=== PATIENT | female | born 1990 | race Caucasian/White ===

== ENCOUNTER 2017-02-27 20:43 | Emergency (ER) | payer BC, OTHER ==
[~2017-02-27] VITALS: Ht 162.6 cm; Wt 139.6 kg
[2017-02-27 21:33] LABS: BASOPHILS # (AUTO) 0.09 x10^3/uL (0-0.1); BASOPHILS % (AUTO) 1 % (0-1); EOSINOPHILS # (AUTO) 0.56 x10^3/uL (0-0.4); EOSINOPHILS % (AUTO) 4 % (1-7); LYMPHOCYTES # (AUTO) 3.41 x10^3/uL (1-3.4); LYMPHOCYTES % (AUTO) 26 % (22-44); MD NO; MEAN CORPUSCULAR HEMOGLOBIN 28.1 pg (27.0-34.8); MEAN CORPUSCULAR HGB CONC 33.7 g/dL (32.4-35.8); MEAN CORPUSCULAR VOLUME 83.4 fL (80-100); MEAN PLATELET VOLUME 7.6 fL (7.4-10.4); MONOCYTES # (AUTO) 0.45 x10^3/uL (0.2-0.8); MONOCYTES % (AUTO) 3 % (2-9); NEUTROPHILS # (AUTO) 8.77 x10^3/uL (1.8-6.8); NEUTROPHILS % (AUTO) 66 % (42-75); PLATELET COUNT 337 x10^3/uL (130-400); RED BLOOD COUNT 5.04 x10^6/uL (3.82-5.3); RED CELL DISTRIBUTION WIDTH 12.9 % (9.6-15.2)
[2017-02-27 21:44] LABS: ALANINE AMINOTRANSFERASE 30 U/L (12-78); ALBUMIN 3.7 g/dL (3.4-5.0); ANION GAP 6 mmol/L (5-15); CALCIUM 9.1 mg/dL (8.5-10.1); CHLORIDE 108 mmol/L (98-107); CREATININE 0.98 mg/dL (0.55-1.02)
[2017-02-27 21:47] LABS: ALKALINE PHOSPHATASE 91 U/L (45-117); BILIRUBIN,TOTAL 0.3 mg/dL (0.2-1.0); TOTAL PROTEIN 7.6 g/dL (6.4-8.2)
[2017-02-27] MEDS ORDERED: KETOROLAC 30 MG/1 ML ONE (22:10)
[2017-02-27 22:11] LABS: HCG UR SG 1.023 (1.003-1.030); MICROSCOPIC AUTO
[2017-02-27 22:30] LABS: CULTURE INDICATED? YES
[2017-02-27] MEDS ORDERED: HYDROmorphone 1 MG/ML, 1ML IVPush PRN (22:30)
[2017-02-27] MEDS ORDERED: KETOROLAC 30 MG/1 ML IM ONE (22:30)
[2017-02-27 22:38] VITALS: BP 144/92
[2017-02-27] MEDS ORDERED: HYDROmorphone 2 MG/ML, 1ML ONE (22:53)
== END 2017-02-27 23:14 | disposition home or self-care (01) ==
LOC: ED 21:44
DX: N93.8 Other specified abnormal uterine and vaginal bleeding (principal); N30.91 Cystitis, unspecified with hematuria; N39.0 Urinary tract infection, site not specified
CPT/HCPCS: 36415; 80053; 81001; 81025; 83690; 85025; 87077; 87086; 87186; 96372; 99284; J1885